=== PATIENT | female | born 1990 | race African-American/Black ===

== ENCOUNTER 2021-03-04 20:07 | Emergency (ER) | payer BC | END 2021-03-04 21:22 | disposition home or self-care (01) | LOC: CSHERS 20:07 | DX: S93.402A Sprain of unspecified ligament of left ankle, initial encounter (principal); X50.1XXA Overexertion from prolonged static or awkward postures, initial encounter ==

== ENCOUNTER 2021-04-07 18:53 | Emergency (ER) | payer BC ==
[2021-04-07] MEDS ORDERED: Ondansetron PF 4 MG/2 ML Vial ONE (19:24)
[2021-04-07] MEDS ORDERED: Metoclopramide HCl 10 MG/2 ML VIAL ONE (19:24)
[2021-04-07] MEDS ORDERED: Ketorolac Tromethamine 30 MG/ML VIAL ONE (19:24)
[2021-04-07] MEDS ORDERED: diphenhydrAMINE 50 MG/ML VIAL ONE (19:24)
[2021-04-07 19:40] LABS: #Basophils 0.1 10x3/uL (0.0-0.2); #Eosinphils 0.3 10x3/uL (0.0-0.5); #Monocytes 0.6 10x3/uL (0.0-1.1); %Basophils 0.6 % (0.0-2.0); %Eosinophils 3.2 % (0.0-6.0); %Lymphocytes 33.6 % (18.0-47.0); %Monocytes 5.7 % (0.0-10.0); %Neutrophils 56.7 % (40.0-75.0); Hemoglobin 10.8 g/dL (12.0-15.5); Mean Corpuscular HGB CONC 30.6 g/dL (32.0-36.0); Mean Corpuscular Hemoglobin 27.8 pg (27.0-33.0); Mean Platelet Volume 9.9 fl (7.4-10.4); Platelet Count 306 10x3/uL (150-450); Red Blood Cell (RBC) Count 3.88 10x6/uL (3.90-5.03); White Blood Cell (WBC) Count 10.6 10x3/uL (3.5-10.5)
[2021-04-07 19:52] LABS: ALT (SGPT) 13 U/L (8-55); AST (SGOT) 16 U/L (5-34); Albumin 4.1 g/dL (3.5-5.0); Alkaline Phosphatase 50 U/L (40-110); Anion Gap 14 mmol/L (10-20); BUN (Urea Nitrogen) 14 mg/dL (7.0-18.7); Bilirubin, Total 0.4 mg/dL (0.2-1.2); Calc. Creatinine Clearance 0 mL/min (70-130); Calcium 9.3 mg/dL (7.8-10.44); Carbon Dioxide 24 mmol/L (22-29); Chloride 106 mmol/L (98-107); Globulin 3.6 g/dL (2.4-3.5); Glucose 120 mg/dL (70-105); Potassium 3.5 mmol/L (3.5-5.1); Protein, Total 7.7 g/dL (6.0-8.3); Sodium 140 mmol/L (136-145)
[2021-04-07 19:54] LABS: BHCG - Serum Negative (NEGATIVE); Pregs Control Background? CLEAR/WHITE (CLR/WHITE); Pregs Control Bar Appear? YES (CONTROL BAR)
== END 2021-04-07 20:08 | disposition home or self-care (01) ==
LOC: CSHERS 18:53
DX: G43.909 Migraine, unspecified, not intractable, without status migrainosus (principal); R11.2 Nausea with vomiting, unspecified; R19.7 Diarrhea, unspecified; R29.700 NIHSS score 0
CPT/HCPCS: 36415; 80053; 84703; 85025; 96374; 96375; J1200; J1885; J2405; J2765

== ENCOUNTER 2021-06-18 16:00 | Emergency (ER) | payer BC | END 2021-06-18 18:18 | disposition home or self-care (01) | LOC: CSHERS 16:00 | DX: M77.11 Lateral epicondylitis, right elbow (principal); H65.192 Other acute nonsuppurative otitis media, left ear | CPT/HCPCS: 99283 ==

== ENCOUNTER 2021-09-28 11:09 | Emergency (ER) | payer BC | END 2021-09-28 12:59 | disposition home or self-care (01) | LOC: CSHERS 11:09 | DX: B35.3 Tinea pedis (principal) | CPT/HCPCS: 99283 ==

== ENCOUNTER 2021-11-15 21:19 | Emergency (ER) | payer OTHER, BC ==
[2021-11-15] MEDS ORDERED: Ketorolac Tromethamine 30 MG/ML VIAL ONE (22:19)
[2021-11-15] MEDS ORDERED: diphenhydrAMINE 50 MG/ML VIAL ONE (22:19)
[2021-11-15] MEDS ORDERED: Metoclopramide HCl 10 MG TAB ONE (22:19)
== END 2021-11-15 22:25 | disposition home or self-care (01) ==
LOC: CSHERS 21:19
DX: S29.012A Strain of muscle and tendon of back wall of thorax, initial encounter (principal); R51.9 Headache, unspecified; R11.0 Nausea; H92.02 Otalgia, left ear; D64.9 Anemia, unspecified; X50.0XXA Overexertion from strenuous movement or load, initial encounter; Y93.F2 Activity, caregiving, lifting; Y92.69 Other specified industrial and construction area as the place of occurrence of the external cause; Z20.822 Contact with and (suspected) exposure to COVID-19
CPT/HCPCS: 96372; 99283; J1200; J1885; U0003; U0005

== ENCOUNTER 2022-02-02 12:08 | Emergency (ER) | payer BC ==
[2022-02-02] MEDS ORDERED: Acetaminophen 500 MG TAB ONE (12:46)
[2022-02-02] MEDS ORDERED: Ibuprofen 200 MG TAB ONE (12:46)
[2022-02-02 14:32] LABS: SARS-CoV-2 NAA Rapid Test Not Detected (NotDetected)
== END 2022-02-02 14:56 | disposition home or self-care (01) ==
LOC: CSHERS 12:08
DX: J10.1 Influenza due to other identified influenza virus with other respiratory manifestations (principal); Z20.822 Contact with and (suspected) exposure to COVID-19
CPT/HCPCS: 99284

== ENCOUNTER 2022-03-25 09:18 | Emergency (ER) | payer BC ==
[2022-03-25] MEDS ORDERED: Dexamethasone 10 MG/ML VIAL ONE (12:27)
== END 2022-03-25 11:33 | disposition home or self-care (01) ==
LOC: CSHERS 09:18
DX: J01.90 Acute sinusitis, unspecified (principal); B96.89 Other specified bacterial agents as the cause of diseases classified elsewhere
CPT/HCPCS: 71045; J1100

== ENCOUNTER 2022-04-23 18:46 | Emergency (ER) | payer BC ==
[2022-04-23 19:09] LABS: Bilirubin Neg (Negative); Blood, Urine 150 (Negative); Clarity Slightly Cloudy (Clear); Glucose, Urine (Dipstick) >=1000 mg/dL (Negative); Ketone, Urine Negative (Negative); Leukocyte 500 (Negative); Nitrite Negative (Negative); Pregnancy Test - Urine (BHCG) Negative (Negative); Pregu Control Background? CLEAR/WHITE (CLR/WHITE); Pregu Control Bar Appear? YES (CONTROL BAR); Protein, Urine (Dipstick) Negative (Neg-Trace); Specific Gravity 1.005 (1.002-1.036); Specific Gravity, Urine 1.005 (1.005-1.030); Urobilinogen Normal mg/dL (Less than 2)
[2022-04-23 19:12] LABS: Bacteria/HPF Rare-Few HPF (None Seen)
[2022-04-23] MEDS ORDERED: Ondansetron ODT 4 MG TAB ONE (19:13)
== END 2022-04-23 20:46 | disposition home or self-care (01) ==
LOC: CSHERS 18:46
DX: N39.0 Urinary tract infection, site not specified (principal); R11.2 Nausea with vomiting, unspecified
CPT/HCPCS: 81003; 81015; 81025; 87086; Q0162

== ENCOUNTER 2022-09-22 17:36 | Emergency (ER) | payer BC, OTHER, SELFPAY ==
[~2022-09-22 17:36] MED LIST: Iopamidol 300 61% 100 ML VIAL FS ONE
[2022-09-22] MEDS ORDERED: Ondansetron ODT 4 MG TAB ONE (18:27)
[2022-09-22 18:35] LABS: #Eosinphils 0.2 10x3/uL (0.0-0.5); #Monocytes 0.7 10x3/uL (0.0-1.1); #Neutrophils 4.9 10x3/uL (1.5-8.4); %Basophils 0.5 % (0.0-2.0); %Eosinophils 2.7 % (0.0-6.0); %Lymphocytes 29.1 % (18.0-47.0); %Monocytes 8.4 % (0.0-10.0); %Neutrophils 59.1 % (40.0-75.0); Mean Corpuscular Hemoglobin 27.2 pg (27.0-33.0); Mean Corpuscular Volume 87.7 fl (81.6-98.3); Mean Platelet Volume 9.8 fl (7.4-10.4); Platelet Count 334 10x3/uL (150-450); RBC Distribution Width 13.2 % (11.5-14.5); Red Blood Cell (RBC) Count 4.05 10x6/uL (3.90-5.03); White Blood Cell (WBC) Count 8.3 10x3/uL (3.5-10.5)
[2022-09-22 18:47] LABS: ALT (SGPT) 10 U/L (8-55); AST (SGOT) 15 U/L (5-34); Albumin 4.3 g/dL (3.5-5.0); Alkaline Phosphatase 58 U/L (40-110); Anion Gap 15 mmol/L (10-20); BUN (Urea Nitrogen) 11 mg/dL (7.0-18.7); Bilirubin, Total 0.4 mg/dL (0.2-1.2); Calc. Creatinine Clearance 0 mL/min (70-130); Calcium 9.4 mg/dL (7.8-10.44); Carbon Dioxide 26 mmol/L (22-29); Chloride 104 mmol/L (98-107); Estimated GFR 79; Globulin 3.4 g/dL (2.4-3.5); Glucose 111 mg/dL (70-105); Lipase 19 U/L (8-78); Potassium 3.5 mmol/L (3.5-5.1); Protein, Total 7.7 g/dL (6.0-8.3); Sodium 141 mmol/L (136-145)
[2022-09-22] MEDS ORDERED: Ondansetron PF 4 MG/2 ML Vial ONE (18:47)
[2022-09-22] MEDS ORDERED: Promethazine HCl 25 MG in Sodium Chloride 0.9% 50 ML IVPB PRN (20:03)
[2022-09-22] MEDS ORDERED: Promethazine HCl 25 MG in Sodium Chloride 0.9% 50 ML IVPB SCH (20:15)
[2022-09-22] MEDS ORDERED: Haloperidol Lactate 5 MG/ML VIAL ONE (20:35)
[2022-09-22 20:58] LABS: BHCG - Serum Negative (NEGATIVE); Pregs Control Bar Appear? YES (CONTROL BAR)
[2022-09-22 20:59] LABS: Pregs Control Background? CLEAR/WHITE (CLR/WHITE)
[2022-09-22 21:53] LABS: Bilirubin Neg (Negative); Blood, Urine 150 (Negative); Clarity Clear (Clear); Glucose, Urine (Dipstick) Normal (Negative); Ketone, Urine Negative (Negative); Leukocyte 25 (Negative); Nitrite Negative (Negative); Protein, Urine (Dipstick) 15 mg/dl (Neg-Trace); Specific Gravity, Urine 1.015 (1.005-1.030); Urobilinogen Normal mg/dL (Less than 2)
[2022-09-22 22:14] LABS: Bacteria/HPF Rare-Few HPF (None Seen); Squamous Epithelial 0-3 HPF (0-3); WBC/HPF 0-3 HPF (0-3)
== END 2022-09-22 22:55 | disposition home or self-care (01) ==
LOC: CSHERS 17:36
DX: R11.2 Nausea with vomiting, unspecified (principal); R10.13 Epigastric pain; E11.9 Type 2 diabetes mellitus without complications
CPT/HCPCS: 74177; 80053; 81003; 81015; 82010; 83690; 84703; 85025; 93005; 96361; 96374; 96375; J1630; J2405; J2550; Q0162; Q9967

== ENCOUNTER 2022-12-09 21:34 | Emergency (ER) | payer OTHER | END 2022-12-09 22:10 | disposition home or self-care (01) | LOC: CSHERS 21:34 | DX: M54.50 Low back pain, unspecified (principal); E11.9 Type 2 diabetes mellitus without complications; Z79.4 Long term (current) use of insulin | CPT/HCPCS: 99282 ==

== ENCOUNTER 2023-01-01 21:17 | Emergency (ER) | payer OTHER ==
[2023-01-01 22:25] LABS: SARS-CoV-2 NAA Rapid Test Not Detected (NotDetected)
[2023-01-01] MEDS ORDERED: Cyclobenzaprine 10 MG TAB ONE (22:40)
== END 2023-01-01 22:45 | disposition home or self-care (01) ==
LOC: CSHERS 21:17
DX: J06.9 Acute upper respiratory infection, unspecified (principal); M62.838 Other muscle spasm; E11.9 Type 2 diabetes mellitus without complications; D64.9 Anemia, unspecified; Z20.822 Contact with and (suspected) exposure to COVID-19
CPT/HCPCS: 99283

== ENCOUNTER 2023-01-08 10:56 | Emergency (ER) | payer OTHER ==
[2023-01-08 12:20] LABS: #Basophils 0.1 10x3/uL (0.0-0.2); #Eosinphils 0.2 10x3/uL (0.0-0.5); #Monocytes 0.6 10x3/uL (0.0-1.1); #Neutrophils 5.4 10x3/uL (1.5-8.4); %Basophils 0.6 % (0.0-2.0); %Eosinophils 2.5 % (0.0-6.0); %Lymphocytes 30.7 % (18.0-47.0); %Monocytes 6.2 % (0.0-10.0); %Neutrophils 59.8 % (40.0-75.0); Hematocrit 35.7 % (34.9-44.5); Hemoglobin 11.2 g/dL (12.0-15.5); Mean Corpuscular HGB CONC 31.4 g/dL (32.0-36.0); Mean Corpuscular Hemoglobin 27.6 pg (27.0-33.0); Mean Corpuscular Volume 87.9 fl (81.6-98.3); Mean Platelet Volume 9.5 fl (7.4-10.4); Platelet Count 278 10x3/uL (150-450); RBC Distribution Width 13.2 % (11.5-14.5); Red Blood Cell (RBC) Count 4.06 10x6/uL (3.90-5.03); White Blood Cell (WBC) Count 9.1 10x3/uL (3.5-10.5)
[2023-01-08 12:49] LABS: ALT (SGPT) 13 U/L (8-55); AST (SGOT) 18 U/L (5-34); Albumin 4.3 g/dL (3.5-5.0); Alkaline Phosphatase 55 U/L (40-110); Anion Gap 15 mmol/L (10-20); BUN (Urea Nitrogen) 10 mg/dL (7.0-18.7); Bilirubin, Total 0.5 mg/dL (0.2-1.2); Calc. Creatinine Clearance 0 mL/min (70-130); Calcium 9.8 mg/dL (7.8-10.44); Carbon Dioxide 25 mmol/L (22-29); Chloride 102 mmol/L (98-107); Estimated GFR 86; Globulin 3.1 g/dL (2.4-3.5); Glucose 103 mg/dL (70-105); Potassium 4.1 mmol/L (3.5-5.1); Protein, Total 7.4 g/dL (6.0-8.3); Sodium 138 mmol/L (136-145)
[2023-01-08 12:51] LABS: Troponin I Less than 0.010 ng/mL (< 0.028)
[2023-01-08 12:56] LABS: SARS-CoV-2 NAA Rapid Test Not Detected (NotDetected)
[2023-01-08] MEDS ORDERED: Cyclobenzaprine 10 MG TAB ONE (13:52)
[2023-01-08] MEDS ORDERED: Ibuprofen 200 MG TAB ONE (13:53)
== END 2023-01-08 14:50 | disposition home or self-care (01) ==
LOC: CSHERS 10:56
DX: M62.838 Other muscle spasm (principal); E11.9 Type 2 diabetes mellitus without complications; Z20.822 Contact with and (suspected) exposure to COVID-19
CPT/HCPCS: 36415; 71045; 80053; 84484; 85025; 93005

== ENCOUNTER 2023-02-12 10:44 | Emergency (ER) | payer OTHER ==
[2023-02-12 11:59] LABS: SARS-CoV-2 NAA Rapid Test Not Detected (NotDetected)
[2023-02-12] MEDS ORDERED: guaiFENesin/Codeine Phosphate 100 mg/10 mg 5 ml UD Cup ONE (12:30)
[2023-02-12] MEDS ORDERED: guaiFENesin/Codeine 200 mg/20 mg 10 ml Cup PO SCH (12:30)
== END 2023-02-12 12:46 | disposition home or self-care (01) ==
LOC: CSHERS 10:44
DX: J06.9 Acute upper respiratory infection, unspecified (principal); E11.9 Type 2 diabetes mellitus without complications; Z20.822 Contact with and (suspected) exposure to COVID-19
CPT/HCPCS: 71045; 93005

== ENCOUNTER 2023-03-06 05:07 | Emergency (ER) | payer OTHER ==
[2023-03-06] MEDS ORDERED: Ondansetron PF 4 MG/2 ML Vial ONE (05:49)
[2023-03-06] MEDS ORDERED: Dicyclomine 20 MG/2 ML VIAL ONE (05:49)
[2023-03-06] MEDS ORDERED: Lidocaine 2% Viscous Solution 10 ML, Aluminum & Magnesium Hydroxide 30 ML SSW SCH (06:00)
[2023-03-06 06:11] LABS: ALT (SGPT) 9 U/L (8-55); AST (SGOT) 12 U/L (5-34); Alkaline Phosphatase 53 U/L (40-110); Anion Gap 14 mmol/L (10-20); BUN (Urea Nitrogen) 11 mg/dL (7.0-18.7); Bilirubin, Total 0.5 mg/dL (0.2-1.2); Calc. Creatinine Clearance 0 mL/min (70-130); Calcium 9.2 mg/dL (7.8-10.44); Carbon Dioxide 27 mmol/L (22-29); Chloride 104 mmol/L (98-107); Estimated GFR 91; Globulin 3.1 g/dL (2.4-3.5); Glucose 156 mg/dL (70-105); Lipase 13 U/L (8-78); Potassium 3.7 mmol/L (3.5-5.1); Protein, Total 7.1 g/dL (6.0-8.3); Sodium 141 mmol/L (136-145)
== END 2023-03-06 06:40 | disposition home or self-care (01) ==
LOC: CSHERS 05:07
DX: K29.00 Acute gastritis without bleeding (principal); E11.9 Type 2 diabetes mellitus without complications; D64.9 Anemia, unspecified; Z79.4 Long term (current) use of insulin
CPT/HCPCS: 80053; 83690; 96372; 96374; J2405

== ENCOUNTER 2023-03-07 10:36 | Emergency (ER) | payer OTHER ==
[2023-03-07] MEDS ORDERED: Ondansetron PF 4 MG/2 ML Vial ONE (11:32)
[2023-03-07] MEDS ORDERED: Ketorolac Tromethamine 30 MG/ML VIAL ONE (11:33)
[2023-03-07] MEDS ORDERED: Famotidine/PF 20 mg/2ml Vial ONE (11:33)
[2023-03-07 11:35] LABS: #Basophils 0.1 10x3/uL (0.0-0.2); #Monocytes 0.4 10x3/uL (0.0-1.1); #Neutrophils 8.8 10x3/uL (1.5-8.4); %Basophils 0.5 % (0.0-2.0); %Eosinophils 0.1 % (0.0-6.0); %Lymphocytes 14.2 % (18.0-47.0); %Monocytes 3.7 % (0.0-10.0); %Neutrophils 81.2 % (40.0-75.0); Hematocrit 36.5 % (34.9-44.5); Hemoglobin 11.4 g/dL (12.0-15.5); Mean Corpuscular HGB CONC 31.2 g/dL (32.0-36.0); Mean Corpuscular Hemoglobin 27.9 pg (27.0-33.0); Mean Corpuscular Volume 89.5 fl (81.6-98.3); Mean Platelet Volume 9.9 fl (7.4-10.4); Platelet Count 319 10x3/uL (150-450); RBC Distribution Width 12.7 % (11.5-14.5); Red Blood Cell (RBC) Count 4.08 10x6/uL (3.90-5.03); White Blood Cell (WBC) Count 10.9 10x3/uL (3.5-10.5)
[2023-03-07 11:44] LABS: BHCG - Serum Negative (NEGATIVE); Pregs Control Background? CLEAR/WHITE (CLR/WHITE); Pregs Control Bar Appear? YES (CONTROL BAR)
[2023-03-07 11:53] LABS: ALT (SGPT) 14 U/L (8-55); AST (SGOT) 15 U/L (5-34); Albumin 4.4 g/dL (3.5-5.0); Alkaline Phosphatase 55 U/L (40-110); Anion Gap 17 mmol/L (10-20); BUN (Urea Nitrogen) 12 mg/dL (7.0-18.7); Bilirubin, Total 0.4 mg/dL (0.2-1.2); Calc. Creatinine Clearance 0 mL/min (70-130); Calcium 9.5 mg/dL (7.8-10.44); Carbon Dioxide 26 mmol/L (22-29); Chloride 99 mmol/L (98-107); Estimated GFR 78; Globulin 3.3 g/dL (2.4-3.5); Glucose 215 mg/dL (70-105); Lipase 13 U/L (8-78); Potassium 3.5 mmol/L (3.5-5.1); Protein, Total 7.7 g/dL (6.0-8.3); Sodium 138 mmol/L (136-145)
[2023-03-07 13:46] LABS: Bilirubin Neg (Negative); Blood, Urine 150 (Negative); Clarity Clear (Clear); Glucose, Urine (Dipstick) 50 mg/dL (Negative); Ketone, Urine 15 mg/dL (Negative); Leukocyte Negative (Negative); Nitrite Negative (Negative); Protein, Urine (Dipstick) 30 mg/dl (Neg-Trace)
[2023-03-07 14:06] LABS: Bacteria/HPF 1+ HPF (None Seen); CAUTI Indications for Culture Dysuria,urgency,freq; RBC/HPF 0-3 HPF (0-3)
[2023-03-07 14:07] LABS: Sperm/HPF Rare HPF (None Seen); Trichomonas/HPF Rare HPF (None Seen)
[2023-03-07 14:09] LABS: Urine Culture Reflex No No
[2023-03-07] MEDS ORDERED: Morphine 4 MG/ML VIAL ONE (14:49)
[2023-03-07] MEDS ORDERED: Metoclopramide HCl 10 MG/2 ML VIAL ONE (14:49)
== END 2023-03-07 15:49 | disposition home or self-care (01) ==
LOC: CSHERS 10:36
DX: K25.9 Gastric ulcer, unspecified as acute or chronic, without hemorrhage or perforation (principal); A59.9 Trichomoniasis, unspecified; E11.9 Type 2 diabetes mellitus without complications; D64.9 Anemia, unspecified
CPT/HCPCS: 74177; 76705; 80053; 81001; 83690; 84703; 85025; 96374; 96375; J1885; J2270; J2405; J2765; Q9967; S0028

== ENCOUNTER 2024-05-27 15:04 | Emergency (ER) | payer OTHER | END 2024-05-27 16:10 | disposition home or self-care (01) | LOC: CSHERS 15:04 | DX: S93.622A Sprain of tarsometatarsal ligament of left foot, initial encounter (principal); E11.9 Type 2 diabetes mellitus without complications; X50.1XXA Overexertion from prolonged static or awkward postures, initial encounter | CPT/HCPCS: 99283 ==

== ENCOUNTER 2024-06-02 16:45 | Emergency (ER) | payer OTHER | END 2024-06-02 20:00 | disposition home or self-care (01) | LOC: CSHERS 16:45 | DX: R07.2 Precordial pain (principal); E11.9 Type 2 diabetes mellitus without complications | CPT/HCPCS: 99283 ==

== ENCOUNTER 2024-06-10 06:51 | Emergency (ER) | payer OTHER ==
[2024-06-10] MEDS ORDERED: Ketorolac Tromethamine 30 MG (1 mL) VIAL ONE (07:18)
== END 2024-06-10 07:57 | disposition home or self-care (01) ==
LOC: CSHERS 06:51
DX: R51.9 Headache, unspecified (principal); E11.9 Type 2 diabetes mellitus without complications
CPT/HCPCS: 70450; 96372; J1885

== ENCOUNTER 2024-12-08 09:38 | Emergency (ER) | payer OTHER ==
[2024-12-08] MEDS ORDERED: Ketorolac Tromethamine 30 MG (1 mL) VIAL ONE (10:36)
[2024-12-08] MEDS ORDERED: Acetaminophen 500 MG TAB ONE (10:37)
== END 2024-12-08 10:56 | disposition home or self-care (01) ==
LOC: CSHERS 09:38
DX: K08.89 Other specified disorders of teeth and supporting structures (principal); E11.9 Type 2 diabetes mellitus without complications
CPT/HCPCS: 96372; 99283; J1885

== ENCOUNTER 2025-04-08 04:39 | Emergency (ER) | payer OTHER ==
[2025-04-08] MEDS ORDERED: Ketorolac Tromethamine 30 MG (1 mL) VIAL ONE (05:18)
== END 2025-04-08 06:20 | disposition home or self-care (01) ==
LOC: CSHERS 04:39
DX: M79.18 Myalgia, other site (principal); E11.9 Type 2 diabetes mellitus without complications; Z75.3 Unavailability and inaccessibility of health-care facilities; Z79.4 Long term (current) use of insulin; Z79.84 Long term (current) use of oral hypoglycemic drugs
CPT/HCPCS: 96372; 99283; J1885

== ENCOUNTER 2025-04-18 17:19 | Emergency (ER) | payer OTHER ==
[2025-04-18 19:44] LABS: Glucose, Urine (Dipstick) >=1000 mg/dL (Negative); Leukocyte Negative (Negative); Protein, Urine (Dipstick) Negative (Neg-Trace); Specific Gravity, Urine 1.020 (1.005-1.030)
[2025-04-18 20:29] LABS: Bacteria/HPF None Seen HPF (None Seen); CAUTI Indications for Culture Pelvic or flank pain; Urine Culture Reflex No No; WBC/HPF 0-3 HPF (0-3)
== END 2025-04-18 20:21 | disposition home or self-care (01) ==
LOC: CSHERS 17:19
DX: R11.2 Nausea with vomiting, unspecified (principal); E11.9 Type 2 diabetes mellitus without complications; Z79.4 Long term (current) use of insulin; Z79.84 Long term (current) use of oral hypoglycemic drugs; Z79.85 Long-term (current) use of injectable non-insulin antidiabetic drugs
CPT/HCPCS: 81001; 99284